=== PATIENT | male | born 1955 | race Caucasian/White ===

== ENCOUNTER 2017-07-31 15:59 | Observation (INO) | payer BC ==
[~2017-07-31] VITALS: Ht 188 cm; Wt 87.5 kg
[2017-07-31] VITALS (7 sets, daily range): BP systolic 127–147; BP diastolic 86–109; PULSE 76–80; TEMP 36.7–37; O2SAT 94–97; Ht 188 cm; Wt 87.5 kg
[~2017-07-31 15:59] MED LIST changes: -ATOR-22 PO; -BUPRTAB51 PO; -BUSP-8 PO; -CETI10TA84 PO; -CISATRACURIUM BESYLATE IV SOLN 2 MG/ML 10 ML VIAL ONE; -DEXAMETHASONE SOD INJ 4 MG/ML VIAL ONE; -DTR5 PO; -ESCI1TAB10 PO; -FENTANYL CITRATE INJ 50 MCG/1 ML 2 ML VIAL ONE; -FLM4 PO; -GLYCOPYRROLATE INJ 0.2 MG/ML VIAL ONE; -LIDOCAINE HCL 2% 2 ML VIAL (20MG/ML) ONE; -MIDAZOLAM HCL 1 MG/ML 2ML VIAL ONE; -MIRT15TA PO; -NEOSTIGMINE METHYLSULFATE 5 MG/5 ML SYR ONE; -ONDANSETRON INJ 2 MG/ML 2 ML VIAL ONE; -OPTIRAY 320 IV PRN; -OXYC-57 PO; -PROPOFOL IV EMULSION 10 MG/ML 20 ML VIAL IV ONE; -RIVA1DIS TOP; -TETR12.5 PO
[2017-07-31] MEDS ORDERED: MoRPHine SULFATE 4 MG/ML 1 ML CARP\\VIAL IV PRN ×3 (16:30→19:30)
[2017-07-31] MEDS ORDERED: SODIUM CHLORIDE 0.9% 1000ML 1,000 ML IV ONE (16:30)
[2017-07-31] MEDS ORDERED: ONDANSETRON INJ 2 MG/ML 2 ML VIAL IV PRN ×3 (16:30→20:00)
[2017-07-31] MEDS ORDERED: ESCI1TAB10 PO (16:45)
[2017-07-31] MEDS ORDERED: BUSP-8 PO (16:45)
[2017-07-31] MEDS ORDERED: RIVA1DIS TOP (16:49)
[2017-07-31] MEDS ORDERED: DTR5 PO (16:49)
[2017-07-31] MEDS ORDERED: MIRT15TA PO (16:49)
[2017-07-31] MEDS ORDERED: TETR12.5 PO (16:49)
[2017-07-31] MEDS ORDERED: ATOR-22 PO (16:49)
--- NOTE | 2017-07-31 16:50 | EMERGENCY ROOM VISIT NOTE ---
History First contact with patient: 16:07 Chief Complaint: ABDOMINAL PAIN Stated Complaint: SENT FROM CT - ABD PAIN Nursing Triage Summary: Right sided abd. pain that started 2 days ago. Nausea Yesterday morning and afternoon. Denies vomiting. Denies diarrhea or constipation. reports that patient has seemed "out of it" for the past 2 days. Increase in fatigue. Patient had outpatient CT scan today and sent here due to CT showing acute appendicitis. History of Present Illness The patient is a 62 year old male who presents to the Emergency Room with complaints of abdominal pain for the last 4 days. The patient has a history of [place]'s disease. He does have difficulty getting his words across. His is at the bedside, who is helping him with a history. The patient also felt nauseated. No reported fever. No changes in bowel movements. He describes the pain as a cramping sensation. The patient saw his primary care physician today. Blood work was drawn. He then went for a CT of the abdomen and pelvis. The patient was sent directly to the emergency department, because the CAT scan is consistent with acute appendicitis without abscess or perforation. Review of Systems 10 system review performed and negative unless noted in HPI or below Past Medical/Surgical History Medical Problems: (1) Appendicitis, acute Julia's disease Social History Smoking Status: Former Smoker Marital Status: Housing Status: lives with significant other Occupation Status: disabled Current/Historical Medications Scheduled Atorvastatin (Lipitor), 40 MG PO QPM Bupropion (Wellbutrin-Xl), 300 MG PO QAM Buspirone Hcl (Buspirone Hcl), 30 MG PO BID Cetirizine (Zyrtec), 10 MG PO QPM Escitalopram Oxalate (Lexapro), 30 MG PO QPM Mirtazapine (Remeron), 15 MG PO HS Omeprazole (Prilosec), 20 MG PO BID Oxybutynin Chloride (Oxybutynin Chloride), 5 MG PO BID Rivastigmine (Exelon), 13.3 MG TOP DAILY Tamsulosin HCl (Tamsulosin HCl), 0.4 MG PO QAM Tetrabenazine (Xenazine), 25 MG PO QID Scheduled PRN Oxycodone/Acetaminophen 5MG/325MG (Percocet 5MG/325MG), 1-2 TAB PO Q4H PRN for Pain Physical Exam Vital Signs Date Time Temp Pulse Resp B/P (MAP) Pulse Ox O2 Delivery O2 Flow Rate FiO2 07/31/17 17:35 76 20 144/92 94 Room Air 07/31/17 16:01 37.0 80 17 114/77 90 Room Air Physical Exam VITALS: Vitals are noted on the nurse's note and reviewed by myself. Vital signs stable. GENERAL: 62-year-old male, in no acute distress, nondiaphoretic, SKIN: The skin was without rashes, erythema, edema, or bruising. HEAD: Normocephalic atraumatic. MOUTH: Mucous membranes slightly dry NECK: No JVD. HEART: Regular rate and rhythm without murmurs gallops or rubs. LUNGS: Clear to auscultation bilaterally without wheezes, rales or rhonchi. No accessory muscle use. ABDOMEN: Positive bowel sounds x 4.Soft, tenderness to palpation in the right lower quadrant without any guarding or rebound tenderness. Negative Rovsing sign., MUSCULOSKELETAL: No erythema or edema noted. NEURO: Patient was alert and oriented to person place and time. Overall weakness noted. Some difficulty with speech. Normal sensation to touch. Medical Decision & Procedures ER Provider Diagnostic Interpretation: Patient Name: BRADEN JANSEN Unit Number: [id number] Dictated: 07/31/171510 Transcribed: 07/31/171510 SHERIDAN Printed Date/Time: [~ rep prt dt]/[~ rep prt tm] [~ rep ct labl] - [~ rep ct ivnm] [place] [address] Dictated: 07/31/171510 Transcribed: 07/31/171510 SHERIDAN Printed Date/Time: [~ rep prt dt]/[~ rep prt tm] [~ rep ct labl] - [~ rep ct ivnm] CT OF THE ABDOMEN AND PELVIS WITH CONTRAST CLINICAL HISTORY: Abdominal pain. Evaluate for acute appendicitis. COMPARISON STUDY: None. TECHNIQUE: Following IV administration of 94 mL of Optiray-320, axial images of the abdomen and pelvis were obtained from the lung bases to the proximal femurs. Images were reviewed in the axial, sagittal, and coronal planes. IV contrast was administered without complication. A dose lowering technique was utilized adhering to the principles of ALARA. Oral contrast was administered. CT DOSE: 1129.23 mGycm FINDINGS: Visualized portions of the lower chest demonstrate trace bilateral pleural effusions. No pneumatosis, free air or portal venous gas is present. The liver, spleen, adrenal glands, left kidney and pancreas are normal. A 2.1 cm lesion projecting off the mid to lower pole of the right kidney measures just above water attenuation. This likely reflects a cyst. There is no hydronephrosis. There is no evidence for a bowel obstruction. The appendix is mildly dilated, measuring 1.2 cm in caliber. The wall is thickened with mild periappendiceal infiltration. There is no free air or abscess. Mild bladder wall thickening is noted and accentuated by underdistention. No suspicious osseous lesion is present. There is no lymphadenopathy. There is moderate plaque of the abdominal aorta. IMPRESSION: 1. Findings consistent with acute appendicitis. No free air or abscess. 2. 2.1 cm right renal lesion. This likely reflects a cyst. However, a follow-up nonemergent renal ultrasound is recommended for confirmation. 3. Trace bilateral pleural effusions. Electronically signed by: Joey Ferraro M.D. 07/31/2017 3:17 PM Dictated Date/Time: 07/31/2017 3:11 PM The status of this report is Signed. Draft = Not yet reviewed or approved by Radiologist. Signed = Reviewed and approved by Radiologist. <AttendingPhy>Magdi Nguyen III, M.D.</AttendingPhy> <FamilyPhy>Magdi Nguyen III, M.D.</FamilyPhy> <PrimaryPhy>Magdi Nguyen III, M.D.</PrimaryPhy> < UnitNumber>[id number]</UnitNumber> <VisitNumber>[id number]</VisitNumber> < PatientName>BRADEN JANSEN</PatientName> <DateOfBirth>1955</DateOfBirth > <Location>[facility]</Location> <ServiceDate>07/31/17</ServiceDate> <MNE>ESINDI</ MNE> <OrderingPhy>Magdi Nguyen III, M.D.</OrderingPhy> <OrderingPhyMNE>f rep ord dr bond</OrderingPhyMNE> <DictatingPhyMNE>f rep dict dr bond</DictatingPhyMNE > <CCListMNE>f rep ct mne</CCListMNE> <AdmittingPhyMNE>f pt admit dr bond</ AdmittingPhyMNE> <AttendingPhyMNE>f pt attend dr bond</AttendingPhyMNE> <ConsultingPhyMNE>f pt consult dr bond</ConsultingPhyMNE> <FamilyPhyMNE>f pt fam dr bond</FamilyPhyMNE> <OtherPhyMNE>f pt other dr bond</OtherPhyMNE> < PrimaryPhyMNE>f pt prim care dr bond</PrimaryPhyMNE> <ReferringPhyMNE>f pt referring dr bond</ReferringPhyMNE> Laboratory Results 07/31/17 16:40 Red Blood Count 3.98, Mean Corpuscular Volume 102.5, Mean Corpuscular Hemoglobin 34.7, Mean Corpuscular Hemoglobin Concent 33.8, Mean Platelet Volume 11.7, Neutrophils (%) (Auto) 65.2, Lymphocytes (%) (Auto) 23.8, Monocytes (%) ( Auto) 9.9, Eosinophils (%) (Auto) 0.8, Basophils (%) (Auto) 0.0, Neutrophils # ( Auto) 5.70, Lymphocytes # (Auto) 2.08, Monocytes # (Auto) 0.87, Eosinophils # ( Auto) 0.07, Basophils # (Auto) 0.00 07/31/17 16:40 Test 07/31/17 16:40 White Blood Count 8.75 K/uL (4.8-10.8) Red Blood Count 3.98 M/uL (4.7-6.1) Hemoglobin 13.8 g/dL (14.0-18.0) Hematocrit 40.8 % (42-52) Mean Corpuscular Volume 102.5 fL (80-100) Mean Corpuscular Hemoglobin 34.7 pg (25-34) Mean Corpuscular Hemoglobin Concent 33.8 g/dl (32-36) Platelet Count 200 K/uL (130-400) Mean Platelet Volume 11.7 fL (7.4-10.4) Neutrophils (%) (Auto) 65.2 % Lymphocytes (%) (Auto) 23.8 % Monocytes (%) (Auto) 9.9 % Eosinophils (%) (Auto) 0.8 % Basophils (%) (Auto) 0.0 % Neutrophils # (Auto) 5.70 K/uL (1.4-6.5) Lymphocytes # (Auto) 2.08 K/uL (1.2-3.4) Monocytes # (Auto) 0.87 K/uL (0.11-0.59) Eosinophils # (Auto) 0.07 K/uL (0-0.5) Basophils # (Auto) 0.00 K/uL (0-0.2) RDW Standard Deviation 49.3 fL (36.4-46.3) RDW Coefficient of Variation 13.0 % (11.5-14.5) Immature Granulocyte % (Auto) 0.3 % Immature Granulocyte # (Auto) 0.03 K/uL (0.00-0.02) Prothrombin Time 10.7 SECONDS (9.0-12.0) Prothromb Time International Ratio 1.0 (0.9-1.1) Anion Gap 6.0 mmol/L (3-11) Est Creatinine Clear Calc Drug Dose 81.0 ml/min Estimated GFR () 82.9 Estimated GFR (Non- 71.6 BUN/Creatinine Ratio 15.2 (10-20) Calcium Level 9.2 mg/dl (8.5-10.1) Medications Administered Medications (Trade) Dose Ordered Sig/Jerome Route Start Time Stop Time Status Last Admin Dose Admin Sodium Chloride 1,000 ml @ 999 mls/hr Q1H1M ONCE IV 07/31/17 16:30 07/31/17 17:30 DC 07/31/17 16:44 999 MLS/HR Morphine Sulfate (MoRPHine SULFATE INJ) 4 mg Q1H PRN IV 07/31/17 16:30 07/31/17 21:09 DC 07/31/17 16:45 4 MG Ondansetron HCl (Zofran Inj) 4 mg Q2H PRN IV 07/31/17 16:30 07/31/17 21:10 DC 07/31/17 16:45 4 MG Piperacillin Sod/ Tazobactam Sod (Zosyn Iv) 4.5 gm STK-MED ONCE .ROUTE 07/31/17 17:52 07/31/17 17:53 DC 07/31/17 17:58 4.5 GM Miscellaneous Information (Nursing Verbal Med Order) 1 ea ONE ONCE N/A 07/31/17 18:00 07/31/17 18:00 DC 07/31/17 17:59 1 EA Bupivacaine HCl (Marcaine 0.5% MPF Inj) 30 ml STK-MED ONCE .ROUTE 07/31/17 18:31 07/31/17 18:32 DC 07/31/17 19:10 10 ML Lactated Ringer's 1,000 ml @ 125 mls/hr Q8H IV 07/31/17 19:28 08/30/17 19:27 07/31/17 22:42 125 MLS/HR ED Course Patient was seen and examined Vital signs including blood pressure were reviewed medications list was verified with patient Labs were obtained, and a saline lock was established The patient was given 1 dose of morphine 4 mg IV and Zofran 4 mg IV. He was hydrated with normal saline I spoke with general surgery on-call, Dr. Garcia. He personally evaluated the patient. The patient was much more comfortable after the morphine. He was taken directly to the OR from the emergency department Medical Decision This patient is a 62-year-old male that was sent to the emergency department after being evaluated by his primary care physician and having a CAT scan today. CAT scan is consistent with acute appendicitis. There is no perforation or abscess. His vital signs are stable. He is not septic. General surgery was contacted. They personally evaluated the patient. The patient was taken directly to the OR for an appendectomy. Blood Pressure Screening Patient's blood pressure: Normal blood pressure Impression Primary Impression: Appendicitis, acute Departure Information Prescriptions Oxycodone/Acetaminophen 5MG/325MG (PERCOCET 5MG/325MG) Tab 1-2 TAB PO Q4H Y for Pain, #20 TAB PAIN Prov: Ravi Garcia, DO 07/31/17 Referrals Magdi Nguyen III, M.D. (PCP) Patient Instructions [facility]
[2017-07-31] MEDS ORDERED: FLM4 PO (16:51)
[2017-07-31] MEDS ORDERED: BUPRTAB51 PO (16:51)
[2017-07-31] MEDS ORDERED: CETI10TA84 PO (16:51)
[2017-07-31 17:00] LABS: COMPLETE YES; EOS % 0.8 %; HEMATOCRIT 40.8 % (42-52); IG% 0.3 %; LYMPH % 23.8 %; LYMPH ABS # 2.08 K/uL (1.2-3.4); MEAN CELL VOLUME 102.5 fL (80-100); MEAN CORPUSCULAR HEMOGLOBIN 34.7 pg (25-34); MEAN CORPUSCULAR HGB CONC 33.8 g/dl (32-36); MEAN PLATELET VOLUME 11.7 fL (7.4-10.4); MONO % 9.9 %; NEUT % 65.2 %; PLATELET COUNT 200 K/uL (130-400); RED BLOOD COUNT 3.98 M/uL (4.7-6.1); WHITE BLOOD COUNT 8.75 K/uL (4.8-10.8)
[2017-07-31 17:12] LABS: BUN/CREATININE RATIO 15.2 (10-20); CALCIUM 9.2 mg/dl (8.5-10.1); CREATININE 1.1 mg/dl (0.60-1.40); POTASSIUM 3.9 mmol/L (3.5-5.1)
[2017-07-31 17:13] LABS: PROTHROMBIN TIME (PATIENT) 10.7 SECONDS (9.0-12.0)
[2017-07-31] MEDS ORDERED: PIPERACILLIN/TAZOBACTAM 4.5 GM/100ML D5W ONE (17:52)
[2017-07-31] MEDS ORDERED: NURSING VERBAL MED ORDER ONE (18:00)
--- NOTE | 2017-07-31 18:05 | History and Physical ---
History & Physical Date & Time of Service: Jul 31, 2017 at 17:55 Chief Complaint: Sent From Ct - Abd Pain Primary Care Physician: Magdi Nguyen III, M.D. History of Present Illness 62 year old male with [place]'s disease referred to ED directly from CT. He has 2 days of periumbilical abdominal pain that migrated to the RLQ. Went to PCP, sent for CT due to concern for appendicitis. Endorses nausea and anorexia , last ate at 10:00 am. Denies fevers or changes in bowel habits. Last colonooscopy 8 years ago, recommended follow up in 5 years but refused after diagnosis. No family history of colon cancer or IBD. Past Medical/Surgical History PMHx: [place]'s chorea, HLP, GERD, anxiety/depression PSHx: wrist/hand surgery; no abdominal surgery Family History gastroesophageal cancer in father, mother with lupus. Social History Smoking Status: Former Smoker Marital Status: Occupational Status: disabled Allergies Coded Allergies: No Known Allergies (Unverified , 07/31/17) Home Medications Scheduled Atorvastatin (Lipitor), 40 MG PO QPM Bupropion (Wellbutrin-Xl), 300 MG PO QAM Buspirone Hcl (Buspirone Hcl), 30 MG PO BID Cetirizine (Zyrtec), 10 MG PO QPM Escitalopram Oxalate (Lexapro), 30 MG PO QPM Mirtazapine (Remeron), 15 MG PO HS Omeprazole (Prilosec), 20 MG PO BID Oxybutynin Chloride (Oxybutynin Chloride), 5 MG PO BID Rivastigmine (Exelon), 13.3 MG TOP DAILY Tamsulosin HCl (Tamsulosin HCl), 0.4 MG PO QAM Tetrabenazine (Xenazine), 25 MG PO QID Review of Systems Constitutional: No fever, No chills, No sweats, No weight loss, No weakness, No fatigue, No problem reported Eyes: No worsening of vision, No eye pain, No redness, No discharge, No diplopia, No problem reported ENT: No hearing loss, No unusual epistaxis, No nasal symptoms, No sore throat, No tinnitus, No dental problems, No trouble swallowing, No problem reported Respiratory: No cough, No sputum, No wheezing, No shortness of breath, No dyspnea on exertion, No dyspnea at rest, No hemoptysis, No problem reported Cardiovascular: No chest pain, No orthopnea, No PND, No edema, No claudication , No palpitations, No problem reported Abdomen: + pain, + nausea, No vomiting, No diarrhea Musculoskeletal: No joint pain, No muscle pain, No swelling, No calf pain, No problem reported Psychiatric: + depression symptoms, + anxiety, No anhedonism, No insomnia, No substance abuse, No problem reported Hematologic / Lymphatic: No abnormal bleeding/bruising, No clotting problems, No swollen lymph nodes, No night sweats, No problem reported Integumentary: No rash, No itch, No new/changing skin lesions, No color change , No bleeding, No problem reported Allergic / Immunologic: No environmental allergies, No seasonal allergies, No pet sensitivities, No food allergies, No hives, No frequent infections, No poor healing, No prolonged convalescence, No problem reported Physical Exam Vital Signs Date Time Temp Pulse Resp B/P (MAP) Pulse Ox O2 Delivery O2 Flow Rate FiO2 07/31/17 17:35 76 20 144/92 94 Room Air 07/31/17 16:01 37.0 80 17 114/77 90 Room Air General Appearance: WD/WN, no apparent distress, + pertinent finding (tremor) Head: normocephalic, atraumatic Eyes: normal inspection, PERRL, EOMI ENT: hearing grossly normal, TMs normal, pharynx normal Neck: supple, no adenopathy Respiratory/Chest: chest non-tender, lungs clear, normal breath sounds, no respiratory distress, no accessory muscle use Cardiovascular: regular rate, rhythm, no edema, no gallop, no JVD, normal peripheral pulses Abdomen/GI: normal bowel sounds, soft, no organomegaly, + pertinent finding ( tender to palpation in RLQ with localized guarding, no rebound.) Back: normal inspection, no CVA tenderness Extremities/Musculoskelatal: normal inspection, no calf tenderness, normal capillary refill, no pedal edema Neurologic/Psych: refuse laborer II-XII nml as tested, alert, normal mood/affect, oriented x 3 Skin: normal color, warm/dry, no rash Lymphatic: no adenopathy Diagnostics Laboratory Results Results Past 24 Hours Test 07/31/17 16:40 Range/Units White Blood Count 8.75 4.8-10.8 K/uL Red Blood Count 3.98 4.7-6.1 M/uL Hemoglobin 13.8 14.0-18.0 g/dL Hematocrit 40.8 42-52 % Mean Corpuscular Volume 102.5 80-100 fL Mean Corpuscular Hemoglobin 34.7 25-34 pg Mean Corpuscular Hemoglobin Concent 33.8 32-36 g/dl Platelet Count 200 130-400 K/uL Mean Platelet Volume 11.7 7.4-10.4 fL Neutrophils (%) (Auto) 65.2 % Lymphocytes (%) (Auto) 23.8 % Monocytes (%) (Auto) 9.9 % Eosinophils (%) (Auto) 0.8 % Basophils (%) (Auto) 0.0 % Neutrophils # (Auto) 5.70 1.4-6.5 K/uL Lymphocytes # (Auto) 2.08 1.2-3.4 K/uL Monocytes # (Auto) 0.87 0.11-0.59 K/uL Eosinophils # (Auto) 0.07 0-0.5 K/uL Basophils # (Auto) 0.00 0-0.2 K/uL RDW Standard Deviation 49.3 36.4-46.3 fL RDW Coefficient of Variation 13.0 11.5-14.5 % Immature Granulocyte % (Auto) 0.3 % Immature Granulocyte # (Auto) 0.03 0.00-0.02 K/uL Prothrombin Time 10.7 9.0-12.0 SECONDS Prothromb Time International Ratio 1.0 0.9-1.1 Sodium Level 138 136-145 mmol/L Potassium Level 3.9 3.5-5.1 mmol/L Chloride Level 103 98-107 mmol/L Carbon Dioxide Level 29 21-32 mmol/L Anion Gap 6.0 3-11 mmol/L Blood Urea Nitrogen 17 7-18 mg/dl Creatinine 1.10 0.60-1.40 mg/dl Est Creatinine Clear Calc Drug Dose 81.0 ml/min Estimated GFR () 82.9 Estimated GFR (Non- 71.6 BUN/Creatinine Ratio 15.2 10-20 Random Glucose 79 70-99 mg/dl Calcium Level 9.2 8.5-10.1 mg/dl Diagnostic Radiology CT OF THE ABDOMEN AND PELVIS WITH CONTRAST CLINICAL HISTORY: Abdominal pain. Evaluate for acute appendicitis. COMPARISON STUDY: None. TECHNIQUE: Following IV administration of 94 mL of Optiray-320, axial images of the abdomen and pelvis were obtained from the lung bases to the proximal femurs. Images were reviewed in the axial, sagittal, and coronal planes. IV contrast was administered without complication. A dose lowering technique was utilized adhering to the principles of ALARA. Oral contrast was administered. CT DOSE: 1129.23 mGycm FINDINGS: Visualized portions of the lower chest demonstrate trace bilateral pleural effusions. No pneumatosis, free air or portal venous gas is present. The liver, spleen, adrenal glands, left kidney and pancreas are normal. A 2.1 cm lesion projecting off the mid to lower pole of the right kidney measures just above water attenuation. This likely reflects a cyst. There is no hydronephrosis. There is no evidence for a bowel obstruction. The appendix is mildly dilated, measuring 1.2 cm in caliber. The wall is thickened with mild periappendiceal infiltration. There is no free air or abscess. Mild bladder wall thickening is noted and accentuated by underdistention. No suspicious osseous lesion is present. There is no lymphadenopathy. There is moderate plaque of the abdominal aorta. IMPRESSION: 1. Findings consistent with acute appendicitis. No free air or abscess. 2. 2.1 cm right renal lesion. This likely reflects a cyst. However, a follow-up nonemergent renal ultrasound is recommended for confirmation. 3. Trace bilateral pleural effusions. Impression Assessment and Plan 62 year old male with [place]'s disease with acute appendicitis. Options reviewed to include antibiotics versus appendectomy, patient elects for appendectomy. Plan for laparoscopic appendectomy today in OR [facility] pre op risks of surgery discussed to include but not limited to bleeding, infection, normal appendix, damage to surrounding structures, conversion to open, need for future or more extensive procedures, abscess, and risks of anesthesia admit to obs overnight, if doing well in AM likely d/c to home restart home meds post op, advance diet post op diagnosis, treatment options, risks and benefits of surgery, and plan of care discussed with the patient. All questions answered, patient expressed understanding and agrees to proceed with surgery as planned. Molly Garcia, DO [phone]
--- NOTE | 2017-07-31 18:25 | DIAGNOSTIC IMAGING REPORT ---
CHEST ONE VIEW PORTABLE CLINICAL HISTORY: 62 years-old Male presenting with operative assessment. TECHNIQUE: Portable upright AP view of the chest was obtained. COMPARISON: None. FINDINGS: Cardiomediastinal silhouette normal. Lungs and pleural spaces clear. Osseous structures normal. Upper abdomen normal. IMPRESSION: 1. No acute cardiopulmonary disease. Electronically signed by: [place] M.D. 07/31/2017 6:24 PM Dictated Date/Time: 07/31/2017 6:23 PM
[2017-07-31] MEDS ORDERED: BUPIVACAINE 0.5 % 5 MG/1 ML MPF 30ML VIAL ONE (18:31)
--- NOTE | 2017-07-31 19:28 | [facility] Post Operative Brief Note ---
Immediate Operative Summary Operative Date Jul 31, 2017. Pre-Operative Diagnosis Acute appendicitis Post-Operative Diagnosis acute, non perforated, suppurative appendicitis Procedure(s) Performed Laparoscopic Appendectomy Surgeon Dr Garcia [place] Tribunal Member Surgeon(s) none Estimated Blood Loss 3ML Findings acute, suppurative, non perforated appendicitis. Small amount of adhesions taken down with leda. Good hemostasis. Specimens A. Appendix Drains None Anesthesia GETA Complication(s) None Disposition Recovery Room / PACU
[2017-07-31] MEDS ORDERED: MoRPHine SULFATE 2 MG/ML CARP IV PRN (19:30)
[2017-07-31] MEDS ORDERED: OXYCODONE/ACETAMINOPHEN 5-325 TAB PO PRN ×2 (19:30)
--- NOTE | 2017-07-31 19:46 | [facility] Operative Report ---
Operative Report Operative Date Jul 31, 2017. Pre-Operative Diagnosis Acute appendicitis Post-Operative Diagnosis acute, non perforated, suppurative appendicitis Procedure(s) Performed laparoscopic appendectomy Surgeon Dr Garcia [employer] Hardware Engineer Surgeon(s) none Estimated Blood Loss 3ML Findings acute, suppurative, non perforated appendicitis. Small amount of adhesions taken down with leda. Good hemostasis. Specimens A. 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 The risks of the procedure were discussed, all questions were answered, and the patient agreed to proceed with surgery as planned. Description of Procedure The patient was properly identified, consented, and taken to the operating room where he was placed in the supine position. General endotracheal anesthesia was induced. SCDs and a safety belt were placed. Preoperative antibiotics were administered. A Zazueta catheter was not placed. The patient's abdomen was prepped and draped in the standard sterile fashion. Surgical timeout was performed and all parties were in agreement that this was the correct patient and procedure to be performed and we continued as planned. A curvilinear infraumbilical incision was made with electrocautery and deepened down to the fascia with blunt dissection. The base of the umbilicus was grasped with a Meghana and elevated towards the ceiling. An incision was made in the midline fascia with a knife and entry into the peritoneum was confirmed. Stay suture of 0 Vicryl was placed and a Tucker trocar was inserted. The abdomen was insufflated with carbon dioxide which the patient tolerated without incident. The laparoscope was inserted and no damage from initial trocar placement was noted, no gross abnormalities were noted within the 4 quadrants the abdomen. There were some adhesions in the right lower and left lower quadrants. 5 mm ports were then placed in the left lower quadrant with care not to damage the epigastric vessels, and in the suprapubic midline with care not to damage the bladder. The patient was placed in Trendelenburg position and rotated towards the left. The small bowel was swept away from the right lower quadrant. The cecum was grasped with an atraumatic grasper exposing the appendix. The appendix was mildly inflamed and there was no evidence of perforation. There was no fluid in the pelvis. Some right lower quadrant adhesions were taken down with leda. The appendix was partially retrocecal and the white line of Toldt was mobilized with leda, freeing the appendix. A window was created between the base of the appendix and the mesoappendix. A 30 mm miller loaded endoscopic stapler was then used to divide the appendix at its base. A miller loaded 45mm stapler was then used to divide the mesoappendix. Hemostasis was good. The appendix was placed in an Endo Catch bag and removed through the umbilical port site. The right lower quadrant and pelvis was irrigated and hemostasis was found to be good. 5 mm trochars were removed under direct visualization and the abdomen was allowed to collapse. The umbilical port site fascia was closed with 0 Vicryl suture. The wound was irrigated, and the skin of all ports was closed with 4-0 Monocryl subcuticular sutures. Dermabond was placed over the wounds. The patient was extubated in the operating room and taken to the PACU where he recovered without apparent incident. All sponge, instrument and needle counts were correct at the conclusion of the procedure. The patient tolerated the procedure well. I attest to the content of the Intraoperative Record and any orders documented therein. Any exceptions are noted below.
--- NOTE | 2017-07-31 19:51 | Discharge Instructions ---
Discharge Instructions Date of Service Jul 31, 2017. Admission Reason for Admission: appendicitis Discharge Discharge Diagnosis / Problem: acute appendicitis Discharge Goals Goal(s): Decrease discomfort Activity Recommendations Activity Limitations: per Instructions/Follow-up section . Instructions / Follow-Up Instructions / Follow-Up Appendectomy Post-Operative Instructions Please read over this material carefully. While instructions may vary from patient to patient, the material should provide you with a general idea of things to do to help you get well after your surgery. Activity You will likely feel tired for at least 1 week after your surgery. Take your pain medicine as needed in order to stay active, but rest as needed for recovery. Take short walks 2-3 times a day. This will help reduce the risk of blood clots following surgery. You may use the stairs as needed as long as you are not dizzy or weak. Make sure someone is around the first few times you use the stairs or exercise. Driving Do not drive until you have been seen for your first post-operative clinic office visit. Unless told otherwise, you may drive after your first visit and when you can react safely in an emergency situation. You must not be taking pain medicines stronger than regular Tylenol (acetaminophen) at the time you are driving, nor should you have a great deal of pain, as this will affect your ability to react quickly. Also: do not take the narcotic pain medications such as Tylenol #3 ( acetaminophen with codeine) or Percocet (oxycodone) or lortab (hydrocodone) and plain Tylenol (acetaminophen) at the same time as Tylenol is in both of them. You should limit the total Tylenol dosage to 3,000 mg per 24 hours. If you are trying to take yourself off of the narcotic pain medication by switching to Tylenol, allow 6 hours between doses. Lifting/Coughing Practice 10 deep breaths every hour and 2 coughs every hour, (for at least 12 hours a day), for the first week after surgery. This will decrease your risk of lung problems or pneumonia. Do not lift heavy objects (more than 20-25 pounds) for the first 4 weeks. Also avoid pushing, pulling or abdominal pressure for these first 4 weeks. When coughing, be sure to place a pillow over the incision and gently press inward to reduce the pressure (from coughing) on your incision. Medications Use your pain medicine as prescribed. Narcotic pain medications should be used sparingly, Pain medications may cause nausea on an empty stomach so we recommend you take with it food. The prescription pain medication also universally causes constipation. You may switch to plain Tylenol and/or ibuprofen if you have no medical reasons why you cannot use these medications. If you are feeling constipated and have not had a bowel movement by the 2nd day after surgery, you may take 1 ounce of Milk of Magnesia in the morning, until you are more regular. Incisions If your incisions have been closed with and a special skin glue over the incision-the skin glue will dissolve on its own. Do not try to remove it from your skin. If you have austen in place, please call the office to have them removed by about 7-10 days after surgery with his nurse. You may shower the day after surgery and allow clean, soapy water to run over your incision but do not soak your incisions in water (no hot tub, bathtub or swimming pools) for the first week after surgery. Do not put any ointment or creams over the incisions for the first 2 weeks after surgery or while the incision is open, draining or scabbed. Diet You should only eat frequent small amounts of food for at least a few days after your surgery. It is more important to hydrate yourself than to eat much. When you are able to return to normal food, you may wish to avoid fatty or heavy foods for the first few days. Some of these foods may cause diarrhea or nausea following surgery. You may also find it helpful to consume more fruits and vegetables after surgery to help to avoid constipation. Follow Up You should follow up in the clinic about 1 week to ten days after your surgery. You may be seen sooner if decided by the surgical team. Please call the office at to schedule your follow up visits. PRECAUTIONS When Should I call the Physician? Diarrhea: Occasional loose bowel movements are not uncommon. However, constant watery diarrhea, especially with fever, can mean there is an infection of the bowels. Fever with or without cough: This could be a sign of lung, wound or stomach infection. Elevated heart rate: If your heart rate is more than 100 beats per minute, this could be a sign of infection. Sudden shortness of breath and/or chest pain: This could be related to a heart problem, such as a heart attack, or could be related to a blood clot to the lung (pulmonary embolus) or a lung infection. Leg swelling and pain: Blood clot formation in the leg, particularly if it is on one side, could cause swelling with pain in the calf. Passing out: This could be a sign of low blood pressure, which could be caused by blood loss, low blood sugar or other causes. Wound drainage: Gold colored drainage is normal. If you develop drainage from your wound that is thick, greenish-brown color, has a foul odor, redness, and/or tenderness, it may be a sign that your wound is infected. Call your doctor. For urgent matters, you may call and ask to have the doctor satellite instruction facilitator paged. Please remove call block from your phone and refrain from using your phone so that the physician may return your call promptly. Current Hospital Diet Patient's current hospital diet: advance diet as tolerated Discharge Diet Recommended Diet: Regular Diet Procedures Procedures Performed: Laparoscopic Appendectomy Pending Studies Studies pending at discharge: yes List of pending studies: pathology for appendix Medical Emergencies . Who to Call and When: Medical Emergencies: If at any time you feel your situation is an emergency, please call 911 immediately. . Non-Emergent Contact Non-Emergency issues call your: Primary Care Provider . "Provider Documentation" section prepared by Ravi Garcia. . VTE Core Measure Inpt VTE Proph given/why not?: SCD's [place] Drug Monitoring Program Search Results: patient reviewed within database, no issues identified
[2017-07-31] MEDS ORDERED: OXYC-57 PO (19:54)
[2017-07-31] MEDS ORDERED: LABETALOL HCL IV 5 MG/ML 20ML IV PRN (20:00)
[2017-07-31] MEDS ORDERED: ACETAMINOPHEN 1000 MG/100 ML IV IV PRN (20:00)
[2017-07-31] MEDS ORDERED: EpHEDrine SULFATE INJ 50 MG/ML AMP IV PRN (20:00)
[2017-07-31] MEDS ORDERED: FLUMAZENIL 0.1 MG/1 ML 10 ML VIAL IV PRN (20:00)
[2017-07-31] MEDS ORDERED: NALOXONE HCL 0.4 MG/1 ML VIAL/CARP IV PRN (20:00)
[2017-07-31] MEDS ORDERED: ATROPINE SULFATE 0.1 MG/ML 5ML SYR IV PRN (20:00)
[2017-07-31] MEDS ORDERED: PROMETHAZINE HCL INJ 12.5 MG in SODIUM CHLORIDE 0.9% 50ML 50 ML IV PRN (20:00)
--- NOTE | 2017-07-31 20:09 | Anesthesiology Progress Note ---
Anesthesia Post Op Note Date & Time Jul 31, 2017 at 20:09 Vital Signs Pain Intensity: 0 Vital Signs Past 12 Hours Date Time Temp Pulse Resp B/P (MAP) Pulse Ox O2 Delivery O2 Flow Rate FiO2 07/31/17 20:00 82 16 152/83 99 Oxymask 10 07/31/17 19:50 82 16 136/97 92 Oxymask 10 07/31/17 19:44 36.4 63 16 134/98 96 Oxymask 10 07/31/17 17:35 76 20 144/92 94 Room Air 07/31/17 16:01 37.0 80 17 114/77 90 Room Air Notes Mental Status: alert / awake / arousable, participated in evaluation Pt Amnestic to Procedure: Yes Nausea / Vomiting: adequately controlled Pain: adequately controlled Airway Patency, RR, SpO2: stable & adequate BP & HR: stable & adequate Hydration State: stable & adequate Anesthetic Complications: no major complications apparent
[2017-07-31] MEDS ORDERED: IV FLUIDS COMPLETED PRN (20:30)
[2017-07-31] MEDS ORDERED: ESCITALOPRAM OXALATE 20 MG TAB PO SCH (21:00)
[2017-07-31] MEDS ORDERED: MIRTAZAPINE TAB 15 MG TAB PO SCH (21:00)
[2017-07-31] MEDS ORDERED: TETRABENAZINE 25 MG PO SCH (21:00)
[2017-07-31] MEDS ORDERED: ATORVASTATIN 20 MG TAB PO SCH (21:00)
[2017-07-31] MEDS ORDERED: CETIRIZINE HCL 10 MG TAB PO SCH (21:00)
[2017-07-31] MEDS: OXYBUTYNIN CHLORIDE 5 MG TAB PO SCH (22:39)
[2017-07-31] MEDS: BusPIRone 15 MG TAB PO SCH (22:40)
[2017-07-31] MEDS: PANTOprazole SOD 40 MG TAB PO SCH (22:41)
[2017-07-31] MEDS: LACTATED RINGER'S 1000ML 1,000 ML IV SCH (22:42)
[2017-07-31] MEDS: KETOROLAC TROMETHAMINE 15 MG/ML VIAL IV SCH (23:35)
[2017-08-01] MEDS: LACTATED RINGER'S 1000ML 1,000 ML IV SCH (04:25)
[2017-08-01] MEDS: KETOROLAC TROMETHAMINE 15 MG/ML VIAL IV SCH (06:06)
[2017-08-01 07:37] VITALS: BP 136/84; PULSE 80; TEMP 36.5; O2SAT 94
--- NOTE | 2017-08-01 08:16 | Surgery Progress Note ---
Surgery Progress Note Date of Service Aug 01, 2017. 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 Doing well, ambulated, urinating, tolerated diet, pain controlled, anxious to go home today. Receiving home meds and no worsening of chorea. Still on small O2 requirement while sleeping. Objective Vital Signs: Date Time Temp Pulse Resp B/P (MAP) Pulse Ox O2 Delivery O2 Flow Rate FiO2 08/01/17 07:37 36.5 80 15 136/84 (101) 94 Nasal Cannula 1.0 07/31/17 23:30 Nasal Cannula 3.0 07/31/17 23:15 37.0 80 18 127/86 (100) 96 Nasal Cannula 4.0 07/31/17 22:42 130/90 (103) 07/31/17 22:33 36.7 78 16 146/109 (121) 97 Nasal Cannula 3.0 07/31/17 21:31 36.7 78 16 134/102 (113) 97 Room Air 07/31/17 21:00 36.9 76 16 147/95 (112) 95 07/31/17 20:30 Nasal Cannula 2.0 07/31/17 20:30 36.9 78 16 136/94 (108) 95 Nasal Cannula 2.0 07/31/17 20:30 Nasal Cannula 2.0 07/31/17 20:20 36.6 77 16 136/89 93 Nasal Cannula 2 07/31/17 20:10 81 16 136/98 93 Nasal Cannula 2 07/31/17 20:00 82 16 152/83 99 Oxymask 10 07/31/17 19:50 82 16 136/97 92 Oxymask 10 07/31/17 19:44 36.4 63 16 134/98 96 Oxymask 10 07/31/17 17:35 76 20 144/92 94 Room Air 07/31/17 16:01 37.0 80 17 114/77 90 Room Air General Appearance: WD/WN, no apparent distress Head: normocephalic, atraumatic Neck: supple, no adenopathy, thyroid normal, no JVD, no carotid bruits, trachea midline Respiratory/Chest: chest non-tender, lungs clear, normal breath sounds, no respiratory distress, no accessory muscle use Cardiovascular: regular rate, rhythm, no edema, no gallop, no JVD, no murmur Abdomen: + pertinent finding (soft, appropriately ttp. dermabond in place, incisions c/d/i, no erythema) Incision(s): clean, dry, intact, no erythema, no drainage Laboratory Results: Results Past 24 Hours Test 07/31/17 16:40 Range/Units White Blood Count 8.75 4.8-10.8 K/uL Red Blood Count 3.98 4.7-6.1 M/uL Hemoglobin 13.8 14.0-18.0 g/dL Hematocrit 40.8 42-52 % Mean Corpuscular Volume 102.5 80-100 fL Mean Corpuscular Hemoglobin 34.7 25-34 pg Mean Corpuscular Hemoglobin Concent 33.8 32-36 g/dl Platelet Count 200 130-400 K/uL Mean Platelet Volume 11.7 7.4-10.4 fL Neutrophils (%) (Auto) 65.2 % Lymphocytes (%) (Auto) 23.8 % Monocytes (%) (Auto) 9.9 % Eosinophils (%) (Auto) 0.8 % Basophils (%) (Auto) 0.0 % Neutrophils # (Auto) 5.70 1.4-6.5 K/uL Lymphocytes # (Auto) 2.08 1.2-3.4 K/uL Monocytes # (Auto) 0.87 0.11-0.59 K/uL Eosinophils # (Auto) 0.07 0-0.5 K/uL Basophils # (Auto) 0.00 0-0.2 K/uL RDW Standard Deviation 49.3 36.4-46.3 fL RDW Coefficient of Variation 13.0 11.5-14.5 % Immature Granulocyte % (Auto) 0.3 % Immature Granulocyte # (Auto) 0.03 0.00-0.02 K/uL Prothrombin Time 10.7 9.0-12.0 SECONDS Prothromb Time International Ratio 1.0 0.9-1.1 Sodium Level 138 136-145 mmol/L Potassium Level 3.9 3.5-5.1 mmol/L Chloride Level 103 98-107 mmol/L Carbon Dioxide Level 29 21-32 mmol/L Anion Gap 6.0 3-11 mmol/L Blood Urea Nitrogen 17 7-18 mg/dl Creatinine 1.10 0.60-1.40 mg/dl Est Creatinine Clear Calc Drug Dose 81.0 ml/min Estimated GFR () 82.9 Estimated GFR (Non- 71.6 BUN/Creatinine Ratio 15.2 10-20 Random Glucose 79 70-99 mg/dl Calcium Level 9.2 8.5-10.1 mg/dl Assessment & Plan POD#!1 lap appendectomy, doing well Plan: wean o2 d/c to home after off of O2 follow up in 1-2 weeks percocet rx prn pain IS instruction the details of surgery and plan of care discussed, all questions answered, patient expressed understanding and agrees with plan of care as stated Molly Garcia, DO
[2017-08-01 08:23] VITALS: BP 136/84; PULSE 80; TEMP 36.5; O2SAT 94
[2017-08-01] MEDS ORDERED: NURSING VERBAL MED ORDER ONE (08:30)
[2017-08-01] MEDS: PANTOprazole SOD 40 MG TAB PO SCH (08:49)
[2017-08-01] MEDS: OXYBUTYNIN CHLORIDE 5 MG TAB PO SCH (08:49)
[2017-08-01] MEDS: BusPIRone 15 MG TAB PO SCH (08:49)
[2017-08-01] MEDS ORDERED: TAMSULOSIN HCL 0.4 MG CAP PO SCH (09:00)
[2017-08-01] MEDS ORDERED: RIVASTIGMINE 13.3 MG TOP SCH (09:00)
[2017-08-01] MEDS ORDERED: BuPROPion XL 300 MG TABCR PO SCH (09:00)
--- NOTE | 2017-08-05 02:10 | DISCHARGE SUMMARY ---
PRIMARY DISCHARGE DIAGNOSIS: Acute appendicitis. SECONDARY DISCHARGE DIAGNOSIS: Julia chorea. PROCEDURE PERFORMED: Laparoscopic appendectomy. HOSPITAL COURSE: The patient is a 62-year-old male who presented to the Emergency Department with complaint of 4 days of abdominal pain. His white count was 8000. CT showed a thickened 1.2 cm appendix consistent with acute appendicitis. He was taken to the operating room that evening for laparoscopic appendectomy. Procedure was well tolerated. He was transferred to the surgical floor for overnight observation. He required some supplemental oxygen while overnight but was able to be weaned on postoperative day #1. He was able to tolerate diet and oral analgesics. He was independent with activity. He was stable for discharge. DISCHARGE INSTRUCTIONS: Discharge home. Follow up with Dr. Garcia within 2 weeks. DISCHARGE MEDICATIONS: Percocet 1-2 tablets every 4 hours as needed. Resume all other home medications, Lipitor 40 mg daily, Wellbutrin 300 mg daily, BuSpar 30 mg b.i.d., Zyrtec 10 mg daily, Lexapro 30 mg daily, Remeron 15 mg at bedtime, Prilosec 20 mg b.i.d., Exelon 13.3 mg daily, oxybutynin 5 mg p.o. b.i.d., Flomax 0.4 mg daily, and Xenazine 25 mg p.o. q.i.d. MTDD
== END 2017-08-01 11:45 | disposition home or self-care (01) ==
LOC: C.EDB 16:00 → C.MSW 19:37 → ENRESERV 20:05
PROVIDERS: ADMIT Surgery; ATTEND Surgery
DX: K35.80 Unspecified acute appendicitis (principal); K66.0 Peritoneal adhesions (postprocedural) (postinfection); G10 Huntington's disease; E78.5 Hyperlipidemia, unspecified; K21.9 Gastro-esophageal reflux disease without esophagitis; F32.9 Major depressive disorder, single episode, unspecified; F41.9 Anxiety disorder, unspecified; Z87.891 Personal history of nicotine dependence; Z79.899 Other long term (current) drug therapy

== ENCOUNTER → 2017-07-31 | Outpatient (CLI) | payer BC ==
[~2017-07-31] MED LIST: ATOR-22 PO; BSP5 PO; BUPR75TA20 PO; BUPRTAB51 PO; BUSP-8 PO; CETI10TA84 PO; CHN/1 PO; CISATRACURIUM BESYLATE IV SOLN 2 MG/ML 10 ML VIAL ONE; CLX20 PO; DEXAMETHASONE SOD INJ 4 MG/ML VIAL ONE; DTR5 PO; ESCI1TAB10 PO; FENTANYL CITRATE INJ 50 MCG/1 ML 2 ML VIAL ONE; FLM4 PO; GLYCOPYRROLATE INJ 0.2 MG/ML VIAL ONE; LIDOCAINE HCL 2% 2 ML VIAL (20MG/ML) ONE; MIDAZOLAM HCL 1 MG/ML 2ML VIAL ONE; MIRT15TA PO; MULTTAB58 PO; NEOSTIGMINE METHYLSULFATE 5 MG/5 ML SYR ONE; OMEP20CA59 PO; ONDANSETRON INJ 2 MG/ML 2 ML VIAL ONE; OPTIRAY 320 IV PRN; OXYC-57 PO; PROPOFOL IV EMULSION 10 MG/ML 20 ML VIAL IV ONE; RIVA1DIS TOP; TETR12.5 PO
--- NOTE | 2017-07-31 15:18 | DIAGNOSTIC IMAGING REPORT ---
CT OF THE ABDOMEN AND PELVIS WITH CONTRAST CLINICAL HISTORY: Abdominal pain. Evaluate for acute appendicitis. COMPARISON STUDY: None. TECHNIQUE: Following IV administration of 94 mL of Optiray-320, axial images of the abdomen and pelvis were obtained from the lung bases to the proximal femurs. Images were reviewed in the axial, sagittal, and coronal planes. IV contrast was administered without complication. A dose lowering technique was utilized adhering to the principles of ALARA. Oral contrast was administered. CT DOSE: 1129.23 mGycm FINDINGS: Visualized portions of the lower chest demonstrate trace bilateral pleural effusions. No pneumatosis, free air or portal venous gas is present. The liver, spleen, adrenal glands, left kidney and pancreas are normal. A 2.1 cm lesion projecting off the mid to lower pole of the right kidney measures just above water attenuation. This likely reflects a cyst. There is no hydronephrosis. There is no evidence for a bowel obstruction. The appendix is mildly dilated, measuring 1.2 cm in caliber. The wall is thickened with mild periappendiceal infiltration. There is no free air or abscess. Mild bladder wall thickening is noted and accentuated by underdistention. No suspicious osseous lesion is present. There is no lymphadenopathy. There is moderate plaque of the abdominal aorta. IMPRESSION: 1. Findings consistent with acute appendicitis. No free air or abscess. 2. 2.1 cm right renal lesion. This likely reflects a cyst. However, a follow-up nonemergent renal ultrasound is recommended for confirmation. 3. Trace bilateral pleural effusions. Electronically signed by: Joey Ferraro M.D. 07/31/2017 3:17 PM Dictated Date/Time: 07/31/2017 3:11 PM
== END | disposition home or self-care (01) ==
LOC: C.CTS 12:28
PROVIDERS: ATTEND Family Medicine
DX: R10.31 Right lower quadrant pain (principal)